=== PATIENT | female | born 1985 | race Caucasian/White ===

== ENCOUNTER 2016-08-28 12:34 | Emergency (ER) | payer OTHER ==
[2016-08-28 13:14] LABS: HEMOGLOBIN 15.1 gm/dl (12.3-15.3); RED BLOOD COUNT 5.81 M/UL (4.00-5.10); WHITE BLOOD COUNT 14.2 K/UL (4.5-11.0)
[2016-08-28 13:35] LABS: BUN/CREATININE RATIO 9 (0-10)
== END 2016-08-28 17:40 | disposition home or self-care (01) ==
LOC: ER1 12:34
PROVIDERS: Student in an Organized Health Care Education/Training Program
DX: J18.9 Pneumonia, unspecified organism (principal); I12.9 Hypertensive chronic kidney disease with stage 1 through stage 4 chronic kidney disease, or unspecified chronic kidney disease; E11.22 Type 2 diabetes mellitus with diabetic chronic kidney disease; N18.9 Chronic kidney disease, unspecified; E11.40 Type 2 diabetes mellitus with diabetic neuropathy, unspecified; F41.9 Anxiety disorder, unspecified; F17.200 Nicotine dependence, unspecified, uncomplicated; Z88.2 Allergy status to sulfonamides; Z90.49 Acquired absence of other specified parts of digestive tract; Z79.84 Long term (current) use of oral hypoglycemic drugs; Z79.899 Other long term (current) drug therapy
CPT/HCPCS: 36415; 71010; 80053; 82550; 82553; 83874; 84484; 85025; 85379; 93005; 99285; J7050; Q9963

== ENCOUNTER 2021-06-28 11:27 | Emergency (ER) | payer OTHER ==
[~2021-06-28 11:27] MED LIST: CELEXA20 MG PO; LISINOPRIL10 MG PO
[2021-06-28] MEDS ORDERED: BACTROBAN OINT22 GM EXT (13:43)
[2021-06-28] MEDS ORDERED: IBUPROFEN600 MG PO (13:43)
== END 2021-06-28 14:23 | disposition home or self-care (01) ==
LOC: ER1 11:27
DX: S81.011A Laceration without foreign body, right knee, initial encounter (principal); S93.401A Sprain of unspecified ligament of right ankle, initial encounter; I12.9 Hypertensive chronic kidney disease with stage 1 through stage 4 chronic kidney disease, or unspecified chronic kidney disease; N18.9 Chronic kidney disease, unspecified; F17.210 Nicotine dependence, cigarettes, uncomplicated; W19.XXXA Unspecified fall, initial encounter
CPT/HCPCS: 12002; 73564; 73590; 73630; 99283